=== PATIENT | male | born 1995 | race Caucasian/White ===

== ENCOUNTER 2018-03-28 20:27 | Emergency (ER) | payer OTHER ==
[~2018-03-28] VITALS: Ht 182.9 cm; Wt 90.7 kg
[2018-03-28 20:45] VITALS: BP 108/63
--- NOTE | 2018-03-28 22:04 | NUR ---
PT AMBULATED TO BED 01.
--- NOTE | 2018-03-28 22:10 | NUR ---
22 YO MALE COMES TO ER FOR C/O DRAINAGE FROM GENITAL AREA. PT STATES, "I HAVE HAD DRAINAGE FROM MY PENIS FOR THE LAST DAY." PT STATES HE HAS HAD SIMILAR DRAINAGE IN THE PAST AND WAS DX WITH STD. PT DENIES OTHER PMH. PT HAS NKA. PT AAOX4. PALPABLE PULSES S1 S2, LUNGS CLEAR EVEN UNLABORED BILATERALLY. ABD SOFT NON DISTENDED. PT VOIDING, STATES ITCHINESS, AND URGENCY @ TIMES. SKIN INTACT; REDNESS NOTED TO GENITAL AREA. WILL UPDATE ER MD. WILL CONTINUE TO MONITOR.
[2018-03-28] MEDS ORDERED: AZITHROMYCIN 250 MG TAB PO ONE (22:40)
[2018-03-28] MEDS ORDERED: cefTRIAXone 250 MG in LIDOCAINE MPF 1% - 5 mL VIAL 0.9 ML IM ONE (22:40)
--- NOTE | 2018-03-28 23:28 | NUR ---
Patient discharged with v/s stable. Written and verbal after care instructions given and explained BY MD. Patient alert, oriented and verbalized understanding of instructions. Ambulatory with steady gait. All questions addressed prior to discharge. ID band removed. Patient advised to follow up with PMD. Rx of DOXYCYCLINE given. Patient educated on indication of medication including possible reaction and side effects BY MD. Opportunity to ask questions provided and answered BY MD.
[2018-03-28 23:41] VITALS: BP 102/70
[2018-03-31 06:31] LABS: CHLAMYDIA TRACHOMATIS AMP DNA Negative (Negative)
--- NOTE | 2018-03-31 10:00 | NUR ---
addendum: lab. results positive for neisseria gonorrhea. referred to dr. melo , doug farther treaments. patient recieved zithromax and rocephin in er with prescription of doxycycline. copy lab. results given to kaylee, infection control.
== END 2018-03-28 23:28 | disposition home or self-care (01) ==
LOC: MED 20:27
DX: R36.9 Urethral discharge, unspecified (principal); Z20.2 Contact with and (suspected) exposure to infections with a predominantly sexual mode of transmission
CPT/HCPCS: 36415; 81002; 87491; 96372; 99283; J0696; J2001

== ENCOUNTER 2020-09-18 14:17 | Emergency (ER) | payer MEDICAID, OTHER ==
[~2020-09-18] VITALS: Ht 182.9 cm; Wt 85.7 kg
[2020-09-18 14:50] VITALS: BP 161/57
--- NOTE | 2020-09-18 15:01 | NUR ---
Pt to lobby for open bed.
[2020-09-18] MEDS ORDERED: LIDOCAINE MPF 1% 5 ML ONE (16:28)
[2020-09-18] MEDS ORDERED: SULF-59 PO (16:38)
[2020-09-18] MEDS ORDERED: CEPH-588 PO (16:38)
[2020-09-18] MEDS ORDERED: NAPR-54 PO (16:38)
--- NOTE | 2020-09-18 16:46 | NUR ---
PT WOUND DRESSED WITH NON-ADHERENT GAUZE PAD
[2020-09-18 17:30] VITALS: BP 151/63
--- NOTE | 2020-09-18 17:30 | NUR ---
No nursing interventions performed.
--- NOTE | 2020-09-18 17:37 | NUR ---
Patient discharged with v/s stable. Written and verbal after care instructions given and explained. Patient alert, oriented and verbalized understanding of instructions. Ambulatory with steady gait. All questions addressed prior to discharge. ID band removed. Patient advised to follow up with PMD. Rx of Cephalexin, Naproxen, Bactrim given. Patient educated on indication of medication including possible reaction and side effects. Opportunity to ask questions provided and answered.
== END 2020-09-18 17:37 | disposition home or self-care (01) ==
LOC: MED 14:17
DX: L02.415 Cutaneous abscess of right lower limb (principal); Z79.899 Other long term (current) drug therapy; Z98.890 Other specified postprocedural states
CPT/HCPCS: 10060; 99283; J2001